=== PATIENT | male | born 2000 | race African-American/Black ===

== ENCOUNTER 2021-03-09 10:24 | Emergency (ER) | payer SELFPAY ==
[2021-03-09 11:11] VITALS: BP 116/73; PULSE 63; RESP 16; TEMP 36.3; O2SAT 100
--- NOTE | 2021-03-09 11:48 | ED.URI ---
HPI - URI/Sore Throat General Chief Complaint: Upper Respiratory Infection Stated Complaint: Congestion Time Seen by Provider: 03/09/21 11:48 Source: patient and RN notes reviewed Mode of arrival: ambulatory Limitations: no limitations History of Present Illness HPI Narrative: 20-year-old male presents to the [facility] with complaints of congestion, intermittent shortness of breath, scratchy dry throat, sore throat for the last 3 days. Has been taking Claritin and a nasal spray. Denies any concerns for Covid. Not vaccinated against Covid. Related Data Allergies Allergy/AdvReac Type Severity Reaction Status Date / Time No Known Allergies Allergy Verified 03/09/21 12:21 Review of Systems Constitutional: Constitutional: Reports no additional constitutional complaints, Denies chills and Denies fever(s) Eyes: Eyes: Reports no additional eye complaints ENT: Reports as per HPI and Reports sore throat Cardiovascular: Cardiovascular: Reports no additional cardiovascular complaints Respiratory: Respiratory: Reports as per HPI, Reports chest congestion and Reports dyspnea Gastrointestinal: Gastrointestinal: Reports no additional gastrointestinal complaints Genitourinary: Genitourinary: Reports no additional male genitourinary complaints Musculoskeletal: Musculoskeletal: Reports no additional musculoskeletal complaints Integumentary/Breasts: Skin/Breast: Reports system reviewed and no additional complaints, except as docu Neurologic: Reports system reviewed and no additional complaints, except as documented Psychiatric: Psychiatric: Reports no additional psychiatric complaints Allergic/Immunologic: Allergic/Immunologic: Reports no additional allergic/immunologic complaints PMFSH Past Medical History Medical History (Updated 03/09/21 @ 12:21 by Sharon Reyes) No significant medical problems Surgical History Surgical History (Updated 03/09/21 @ 11:58 by Sharon Reyes) No significant past surgical history Social History Social History (Updated 03/09/21 @ 11:58 by Sharon Reyes) Living arrangements: with family Exam Const: General: no acute distress and alert Nutritional Appearance: well nourished Orientation/consciousness: patient oriented x3 HENMT: Head: normal to inspection Ears: external ears normal, TM's normal bilaterally and EAC's normal Eyes: Conjunctivae: conjunctivae normal Pupils: Equal, round and reactive pupils present Neck: Neck: normal visual inspection, no lymphadenopathy and no meningeal signs Chest: Chest palpation & inspection: normal inspection of the chest Resp: Effort & Inspection: normal respiratory effort and no use of accessory muscles Auscultation: clear to auscultation bilaterally, no crackles, no rales, no rhonchi and no wheezes Cardio: Rate: regular rate Rhythm: regular rhythm GI: GI Palp: Yes Soft to palpation and No Tenderness to palpation present (GI) : General: Yes no CVA tenderness Male General Exam: Yes normal external exam Back/Spine/Pelvis: Back: no CVA tenderness Skin: General skin exam: normal color Rashes: no rashes Neuro: General: patient oriented x3, moves all extremities, no meningeal signs and no focal motor deficits Speech: normal speech Gait exam (Neuro): Normal gait present Extrem: General: normal to inspection Psych: Appearance: grossly normal and well kempt Mental Status: mental status grossly normal Affect: normal affect Attitude: cooperative Thought content: Yes Normal thought content present Course Course Emergency Course: Discharge instructions reviewed with patient, as well as provided in writing per nursing staff. The instructions also include specific and strict return/GO TO THE ER as well as f/u information. All questions have been answered, and the patient deny any further questions with discharge and discharge plan. Vital Signs Vital signs: Vital Signs Temperature 97.4 F L 03/09/21 11:11 Pulse Rate 63 09
== END 2021-03-09 12:24 | disposition home or self-care (01) ==
PROVIDERS: Emergency Provider Nurse Practitioner
DX: J02.9 Acute pharyngitis, unspecified (principal)
CPT/HCPCS: 87081; 87880; 99203; G0463

== ENCOUNTER 2021-03-31 12:54 | Emergency (ER) | payer SELFPAY ==
[2021-03-31 13:04] VITALS: BP 146/90; PULSE 78; RESP 16; TEMP 36.3; O2SAT 100
--- NOTE | 2021-03-31 13:50 | ED.LOWEXIN ---
HPI - Extremity Injury (Lower) General Chief Complaint: Extremity Injury, Lower Stated Complaint: Right Ankle Pain Time Seen by Provider: 03/31/21 13:44 Source: patient and RN notes reviewed Mode of arrival: ambulatory Limitations: no limitations History of Present Illness HPI Narrative: Patient presents today complaining of right foot and ankle pain. He initially hurt his right ankle in October and wore a boot for a month after this injury as it occurred at work. Patient hurt his foot again yesterday at home when he twisted it on a toy. He called into work yesterday and today due to pain and is requesting a work note. He has declined an x-ray today due insurance concerns. He does report some tingling to the lateral ankle. He does have a boot at home that he has been wearing. Currently rates his pain 7/10 and has been applying ice. Pain increases with weightbearing and movement. MD complaint: ankle injury Related Data Home Medications Medication Instructions Recorded Confirmed No Home Medications 03/31/21 03/31/21 Allergies Allergy/AdvReac Type Severity Reaction Status Date / Time No Known Allergies Allergy Verified 03/31/21 13:06 Review of Systems Review of Systems: CONSTITUTIONAL: Denies body aches, fever, chills, or sweats. EYES: Denies visual changes, redness, or discharge. ENT: Denies rhinorrhea, congestion, sore throat, or otalgia. CARDIOVASCULAR: Denies chest pain, palpitations, or edema. RESPIRATORY: Denies cough or dyspnea. GASTROINTESTINAL: Denies abdominal pain, nausea, vomiting, or diarrhea. GENITOURINARY: Denies dysuria or hematuria. SKIN: Denies rash, itching, or wounds. MUSCULOSKELETAL: Denies back pain, or myalgia. + Right foot injury NEUROLOGIC: Denies headache, numbness, or weakness.+ Tingling to the right ankle PSYCH: Denies depression or anxiety. [facility] Past Medical History Medical History No significant medical problems Surgical History Surgical History No significant past surgical history Comments At time of signature, I have reviewed and agree with nursing past medical, surgical, social and family history unless otherwise noted. Please see nursing chart for further information. There is no relevant family history pertinent to the presenting complaint Exam Narrative: GENERAL: Well-appearing, well-nourished, and in no acute distress. HEAD: Normocephalic, atraumatic. EYES: EOMI. No redness or drainage. Conjunctivae normal. ENT: Mucous membranes pink and moist. NECK: Normal AROM. CHEST: No respiratory distress. EXTREMITIES: Right foot: Tenderness and localized edema to the proximal lateral foot with tenderness to the same area. No tenderness to the lateral or medial malleolus. No tenderness to the base of the fifth metatarsal. Distal sensation intact. Capillary refill normal. Pedal pulse normal. Pain to the edematous area with range of motion of the foot and ankle. SKIN: Warm, dry, no rash. Capillary refill normal. Normal skin turgor. NEURO: No focal deficits. Alert and oriented x3. Gait steady. PSYCH: Normal affect. No signs of depression or anxiety. Course Vital Signs Vital signs: Vital Signs Temperature 97.4 F L 03/31/21 13:04 Pulse Rate 78 03/31/21 13:04 Respiratory Rate 16 03/31/21 13:04 Blood Pressure 146/90 H 03/31/21 13:04 Pulse Oximetry 100 03/31/21 13:04 Temperature 97.4 F L 03/31/21 13:04 Pulse Rate 78 03/31/21 13:04 Respiratory Rate 16 03/31/21 13:04 Blood Pressure 146/90 H 03/31/21 13:04 Pulse Oximetry 100 03/31/21 13:04 Reviewed. Pt has been instructed to follow up with his PCP regarding his elevated blood pressure today. MDM - Extremity Injury (Lower) Differential Diagnosis Differential diagnosis: Likely ankle sprain and strain, ankle fracture and other (Foot sprain, foot fracture, contusion)
== END 2021-03-31 13:51 | disposition home or self-care (01) ==
PROVIDERS: Emergency Provider Nurse Practitioner; PCP Nurse Practitioner
DX: S93.601A Unspecified sprain of right foot, initial encounter (principal); X50.9XXA Other and unspecified overexertion or strenuous movements or postures, initial encounter
CPT/HCPCS: 99212; G0463

== ENCOUNTER 2021-05-25 16:26 | Emergency (ER) | payer SELFPAY ==
[2021-05-25 16:37] VITALS: BP 126/64; PULSE 63; RESP 18; TEMP 36.7; O2SAT 100
--- NOTE | 2021-05-25 16:51 | ED.HEATRA ---
HPI - Head Injury General Chief complaint: Head Injury Stated complaint: Head Pain Time Seen by Provider: 05/25/21 16:51 Source: patient, RN notes reviewed and old records reviewed Mode of arrival: ambulatory Limitations: no limitations History of Present Illness HPI Narrative: 20-year-old male presents to the [facility] with a headache. Patient states that he was playing basketball and fell hitting his head without loss of consciousness. No blurry vision or change in vision. No chest pain or shortness of breath. No neck pain or back pain. States that this time he felt a little dizzy. Did not go to work today requesting a work note Complaint: head injury Related Data Home Medications Medication Instructions Recorded Confirmed No Home Medications 03/31/21 05/25/21 Allergies Allergy/AdvReac Type Severity Reaction Status Date / Time No Known Allergies Allergy Verified 05/25/21 16:43 Review of Systems Review of Systems: All systems reviewed & are unremarkable except as noted in HPI and below Constitutional: Constitutional: Reports no additional constitutional complaints Eyes: Eyes: Reports no additional eye complaints, Denies change in vision and Denies photophobia ENT: Reports system reviewed and no additional complaints, except as documented Cardiovascular: Cardiovascular: Reports no additional cardiovascular complaints Respiratory: Respiratory: Reports no additional respiratory complaints Gastrointestinal: Gastrointestinal: Reports no additional gastrointestinal complaints Genitourinary: Genitourinary: Reports no additional male genitourinary complaints Musculoskeletal: Musculoskeletal: Reports no additional musculoskeletal complaints Integumentary/Breasts: Skin/Breast: Reports system reviewed and no additional complaints, except as docu, Denies erythema and Denies rash Neurologic: Reports as per HPI, Denies confusion, Denies vertigo, Reports dizziness, Denies syncope, Reports headache(s), Denies focal weakness, Denies numbness and Denies weakness Psychiatric: Psychiatric: Reports no additional psychiatric complaints Allergic/Immunologic: Allergic/Immunologic: Reports no additional allergic/immunologic complaints [facility] Past Medical History Medical History No significant medical problems Surgical History Surgical History No significant past surgical history Social History Social History (Updated 05/26/21 @ 18:50 by Sharon Reyes) Living arrangements: with family Gender identity (if verbalized by the patient): Male Comments At the time of my signature, I reviewed and agree with the nursing past medical, surgical, social, and family history. There is no relevant family history pertinent to the patient complaint. Exam Const: General: healthy appearing, no acute distress and alert Nutritional Appearance: well nourished Orientation/consciousness: patient oriented x3 Limitations: no limitations HENMT: Head: normal to inspection Ears: external ears normal, TM's normal bilaterally and EAC's normal General nose exam: Normal external nose present Face and sinus: normal facial exam Mouth: Yes lip normal Throat: posterior oropharynx normal Eyes: General: appearance normal, both eyes and all related structures Visual Arriaga: normal visual arriaga by confrontation Alignment and Position: alignment normal Conjunctivae: conjunctivae normal Pupils: Equal, round and reactive pupils present EOM: EOMs intact bilaterally Direct Ophthalmoscopy: no photophobia and No photophobia Neck: Neck: normal visual inspection, no lymphadenopathy and no meningeal signs Chest: Chest palpation & inspection: normal inspection of the chest Resp: Effort & Inspection: normal respiratory effort Auscultation: clear to auscultation bilaterally Cardio: Rate: regular rate Rhythm: regular rhythm GI: GI P
== END 2021-05-25 17:11 | disposition home or self-care (01) ==
PROVIDERS: Emergency Provider Nurse Practitioner
DX: S09.90XA Unspecified injury of head, initial encounter (principal); W19.XXXA Unspecified fall, initial encounter; Y93.67 Activity, basketball; R51.9 Headache, unspecified
CPT/HCPCS: 99213; G0463